=== PATIENT | female | born 1995 | race Caucasian/White ===

== ENCOUNTER 2021-01-29 16:04 | Emergency (ER) | payer OTHER ==
[2021-01-29 16:53] VITALS: BP 109/75; PULSE 104; TEMP 97.8; BMI 32.5
[2021-01-29] MEDS ORDERED: IBUPROFEN 600 MG TABLET (FP) PO ONE ×2 (17:16→17:48)
== END 2021-01-29 18:14 | disposition home or self-care (01) ==
LOC: JERFT 16:04
DX: S93.491A Sprain of other ligament of right ankle, initial encounter (principal); X50.9XXA Other and unspecified overexertion or strenuous movements or postures, initial encounter
CPT/HCPCS: 73610-TC-RT-FY; 73630-TC-RT-FY; 99283-25

== ENCOUNTER 2021-10-10 10:50 | Emergency (ER) | payer OTHER ==
[2021-10-10 11:01] VITALS: BP 115/63; PULSE 79; RESP 20; TEMP 97.9; BMI 34.9
[2021-10-10] MEDS ORDERED: KETOROLAC TROMETHAMINE 30 MG/1 ML VIAL IM ONE (11:37)
[2021-10-10] MEDS ORDERED: KETOROLAC TROMETHAMINE 30 MG/1 ML VIAL ONE (11:40)
== END 2021-10-10 11:58 | disposition home or self-care (01) ==
LOC: JER 10:50 → JERFT 10:50
PROC: 3E0233Z Introduction of Anti-inflammatory into Muscle, Percutaneous Approach (ICD-10-PCS; principal; 2021-10-10)
DX: M62.830 Muscle spasm of back (principal)
CPT/HCPCS: 99283-25

== ENCOUNTER 2023-04-27 10:09 | Emergency (ER) | payer OTHER ==
[2023-04-27 10:18] VITALS: BP 115/67; PULSE 83; RESP 18; TEMP 97.3; BMI 30.9
[2023-04-27] MEDS ORDERED: ACETAMINOPHEN 500 MG TABLET (FP) ONE (11:05)
[2023-04-27] MEDS: ACETAMINOPHEN 500 MG TABLET (FP) PO ONE (11:21)
[2023-04-27 11:42] LABS: INR 0.98 (0.83-1.09); PROTHROMBIN TIME (PATIENT) 11.4 SEC (9.7-13.0)
[2023-04-27 11:45] LABS: ACTIVATED PTT 27.1 SECONDS (25.2-36.5)
[2023-04-27 11:51] LABS: BASO % 0.4 % (0-2.0); HEMATOCRIT 35.6 % (32.4-45.2); HEMOGLOBIN 11.2 GM/dL (10.7-15.3); LYMPH % 33.1 % (8-40); MCH 23.7 pg (25.7-33.7); MCHC 31.5 g/dl (32.0-36.0); MEAN CELL VOLUME 75.4 fl (80-96); MONO % 6.2 % (3.8-10.2); NEUT % 59.3 % (42.8-82.8); PLATELET COUNT 236 10^3/uL (134-434); RBC 4.72 M/mm3 (3.60-5.2); RDW 17.2 % (11.6-15.6); WHITE BLOOD COUNT 7.3 K/mm3 (4.0-10.0)
[2023-04-27 12:16] LABS: POTASSIUM 4.2 mmol/L (3.5-5.1)
[2023-04-27 12:18] LABS: CALCIUM 8.6 mg/dL (8.5-10.1)
[2023-04-27 12:19] LABS: ALBUMIN 3.5 g/dl (3.4-5.0); BLOOD UREA NITROGEN 9.2 mg/dL (7-18)
[2023-04-27 12:21] LABS: CREATININE 0.6 mg/dL (0.55-1.3)
[2023-04-27 12:23] LABS: BILIRUBIN,TOTAL 0.3 mg/dL (0.2-1); TOT PROT 7.1 g/dl (6.4-8.2)
== END 2023-04-27 14:39 | disposition home or self-care (01) ==
LOC: JERFT 10:09
DX: M54.6 Pain in thoracic spine (principal); R06.02 Shortness of breath
CPT/HCPCS: 36415; 71046-TC-FY; 80053; 84484; 85025; 85379; 85610; 85730; 99284-25

== ENCOUNTER 2023-11-19 10:30 | Inpatient (IN) | payer OTHER ==
[2023-11-19] MEDS: ELECTROLYTE-148 SOLN 1,000 ML IV SCH (11:30)
[2023-11-19] MEDS ORDERED: AMPICILLIN SODIUM 2 GM VIAL ONE (11:30)
[2023-11-19] MEDS: AMPICILLIN - 2 GM in SODIUM CHLORIDE 100 ML IVPB ONE (11:45)
[2023-11-19 12:04] LABS: BASO % 0.8 % (0-2.0); EOS % 0.2 % (0-4.5); HEMATOCRIT 35.1 % (32.4-45.2); HEMOGLOBIN 11.5 GM/dL (10.7-15.3); LYMPH % 29.8 % (8-40); MCH 24.8 pg (25.7-33.7); MCHC 32.7 g/dl (32.0-36.0); MEAN CELL VOLUME 76.1 fl (80-96); MEAN PLT VOLUME 10.7 fl (7.5-11.1); MONO % 5.8 % (3.8-10.2); NEUT % 63.4 % (42.8-82.8); PLATELET COUNT 141 10^3/uL (134-434); RBC 4.62 M/mm3 (3.60-5.2); RDW 15.1 % (11.6-15.6); WHITE BLOOD COUNT 6.9 K/mm3 (4.0-10.0)
[2023-11-19 12:11] LABS: INR 0.91 (0.83-1.09); PROTHROMBIN TIME (PATIENT) 10.5 SEC (9.7-13.0)
[2023-11-19 12:14] LABS: ACTIVATED PTT 29.6 SECONDS (25.2-36.5)
[2023-11-19 12:30] LABS: POTASSIUM 4.1 mmol/L (3.5-5.1)
[2023-11-19 12:31] LABS: CALCIUM 8.1 mg/dL (8.5-10.1)
[2023-11-19 12:32] LABS: BLOOD UREA NITROGEN 7.9 mg/dL (7-18)
[2023-11-19 12:35] LABS: CREATININE 0.5 mg/dL (0.55-1.3)
[2023-11-19] MEDS ORDERED: PROMETHAZINE HCL 25 MG/1 ML VIAL ONE (12:39)
[2023-11-19] MEDS ORDERED: BUTORPHANOL TARTRATE 2 MG/ML VIAL ONE (12:39)
[2023-11-19] MEDS ORDERED: FENTANYL/BUPIVACAINE/NS/PF - PCEA - 50 ML DISP.SYRIN EP ONE ×2 (12:44→17:38)
[2023-11-19] MEDS ORDERED: NALOXONE HCL 0.4 MG/ML VIAL IVPUSH PRN (12:47)
[2023-11-19] MEDS ORDERED: FENTANYL CITRATE/PF 50 MCG/ML VIAL ONE (12:48)
[2023-11-19] MEDS ORDERED: BUPIVACAINE HCL/PF 0.25% (2.5MG/ML) 10 ML VIAL ONE (12:48)
[2023-11-19] MEDS: FENTANYL/BUPIVACAINE/NS/PF - PCEA - 50 ML DISP.SYRIN EP SCH (13:00)
[2023-11-19 13:15] VITALS: BMI 34.4
[2023-11-19] MEDS ORDERED: OXYTOCIN 30 UNITS in 0.9% NS 30 UNIT/500 ML INFUS.BAG IVPB ONE (15:02)
[2023-11-19] MEDS: OXYTOCIN 30 UNITS in 0.9% NS 30 UNIT/500 ML INFUS.BAG IVPB SCH (15:08)
[2023-11-19] MEDS: AMPICILLIN - 1 GM in SODIUM CHLORIDE 100 ML IVPB SCH (16:35)
[2023-11-19] MEDS ORDERED: OXYTOCIN 20 UNITS in 0.9% NS 20 UNIT/1,000 ML INFUS.BAG IV ONE (18:05)
[2023-11-19] MEDS: OXYTOCIN 20 UNITS in 0.9% NS 20 UNIT/1,000 ML INFUS.BAG IV SCH (20:02)
[2023-11-19 20:25] LABS: CORD BASE EXCESS -4.4 mmol/L (0-2); CORD PCO2 56.8 mmHg (30-78); CORD pH 7.243 (7.14-7.44)
[2023-11-19 20:26] LABS: CORD BASE EXCESS -4.8 mmol/L (0-2); CORD HCO3 20.5 mmHg (20-29); CORD PCO2 38.9 mmHg (30-78); CORD pH 7.339 (7.14-7.44)
[2023-11-19] MEDS ORDERED: METHYLERGONOVINE MALEATE 0.2 MG/1 ML AMP IM PRN (20:32)
[2023-11-19] MEDS ORDERED: oxyCODONE HCL 5 MG TABLET PO PRN (20:32)
[2023-11-19] MEDS ORDERED: BENZOCAINE 28 GM HEMORRHOIDAL OINTMENT TP PRN (20:32)
[2023-11-19] MEDS ORDERED: BISACODYL 10 MG SUPP.RECT RC PRN (20:32)
[2023-11-19] MEDS: ACETAMINOPHEN 325 MG TABLET (FP) PO PRN (23:07)
[2023-11-19] MEDS: BENZOCAINE 20% 57 GM BOTTLE TP PRN (23:07)
[2023-11-19] MEDS: WITCH HAZEL 50% (TUCKS) 40 PAD/JAR PAD TP PRN (23:08)
[2023-11-20] MEDS: IBUPROFEN 600 MG TABLET (FP) PO PRN (08:52)
[2023-11-20 09:04] LABS: BASO % 0.2 % (0-2.0); EOS % 0.2 % (0-4.5); HEMATOCRIT 31.3 % (32.4-45.2); HEMOGLOBIN 10.1 GM/dL (10.7-15.3); LYMPH % 19.9 % (8-40); MCH 24.5 pg (25.7-33.7); MCHC 32.1 g/dl (32.0-36.0); MEAN CELL VOLUME 76.2 fl (80-96); MONO % 4.8 % (3.8-10.2); NEUT % 74.9 % (42.8-82.8); PLATELET COUNT 126 10^3/uL (134-434); RBC 4.11 M/mm3 (3.60-5.2); RDW 14.8 % (11.6-15.6); WHITE BLOOD COUNT 10.9 K/mm3 (4.0-10.0)
[2023-11-20] MEDS: DIPHTH,PERTUSS(ACELL),TET 0.5 ML DISP.SYRIN IM ONE (10:45)
[2023-11-20] MEDS: SENNOSIDES/DOCUSATE COMBO (SENNA PLUS) TABLET (UD) PO PRN (20:57)
[2023-11-21 09:56] VITALS: BP 113/65; PULSE 73; RESP 17; TEMP 97.6
[2023-11-21] MEDS: metFORMIN HCL 500 MG TABLET (FP) PO ONE (13:20)
== END 2023-11-21 15:25 | disposition home or self-care (01) | DRG 560 ==
LOC: JDEL 10:30 → JLDR 11:20 → J3W 22:25
PROVIDERS: ADMIT Obstetrics & Gynecology; ATTEND Obstetrics & Gynecology
PROC: 10E0XZZ Delivery of Products of Conception, External Approach (ICD-10-PCS; principal; 2023-11-19)
PROC: 0HQ9XZZ Repair Perineum Skin, External Approach (ICD-10-PCS; 2023-11-19)
DX: O24.429 Gestational diabetes mellitus in childbirth, unspecified control (principal); O70.0 First degree perineal laceration during delivery; Z3A.36 36 weeks gestation of pregnancy; Z37.0 Single live birth
CPT/HCPCS: 36415; 36600; 59409; 80048; 82803; 82962; 85025; 85610; 85730; 86780; 86850; 86900; 86901; 90715